=== PATIENT | male | born 1945 | race Caucasian/White ===

== ENCOUNTER 2016-07-02 19:30 | Emergency (ER) | payer MEDICARE, MEDICAID ==
[~2016-07-02] VITALS: Ht 170.2 cm; Wt 83.9 kg
[2016-07-02] MEDS ORDERED: IMITREX50 MG ORAL (19:44)
[2016-07-02] MEDS ORDERED: OMEPRAZOLE20 M2 ORAL (19:44)
[2016-07-02] MEDS ORDERED: METOPROLOL TAR100 M1 ORAL (19:44)
[2016-07-02] MEDS ORDERED: CYMBALTA60 MG ORAL (19:44)
[2016-07-02] MEDS ORDERED: DIOVAN160 MG ORAL (19:44)
[2016-07-02 19:45] VITALS: BP 122/65
[2016-07-02] MEDS ORDERED: Morphine Sulfate 4mg/ml Inj IVP ONE (20:15)
[2016-07-02 20:39] LABS: BASOPHILS % (AUTO) 0.4 % (0.0-2.0); EOSINOPHILS % (AUTO) 0.8 % (0.0-3.0); LYMPHOCYTES % (AUTO) 11.8 % (20.0-45.0); MEAN CORPUSCULAR HEMOGLOBIN 33.9 PG (27.0-31.0); MEAN CORPUSCULAR HGB CONC 37.1 G/DL (32.0-36.0); MEAN CORPUSCULAR VOLUME 92 FL (80-99); MEAN PLATELET VOLUME 8.3 FL (6.5-10.1); MONOCYTES % (AUTO) 4.6 % (1.0-10.0); NEUTROPHILS % (AUTO) 82.4 % (45.0-75.0); PLATELET COUNT 162 K/UL (150-450); RED BLOOD COUNT 4.38 M/UL (4.70-6.10)
[2016-07-02 20:46] LABS: APPEARANCE,URINE SLIGHTLY CLOUDY; KETONES,URINE NEGATIVE (NEGATIVE); LEUKOCYTE ESTERASE ,URINE NEGATIVE (NEGATIVE); NITRITE,URINE NEGATIVE (NEGATIVE); PH,URINE 8 (4.5-8.0); PROTEIN,URINE NEGATIVE (NEGATIVE); UROBILINOGEN,URINE NORMAL MG/DL (0.0-1.0)
[2016-07-02 20:48] LABS: TROPONIN I < 0.30 ng/mL (<=0.30)
[2016-07-02 20:51] LABS: ALANINE AMINOTRANSFERASE 39 U/L (3-41); ALBUMIN/GLOBULIN RATIO 1.7 (1.0-2.7); ANION GAP 18 (5-15); ASPARTATE AMINO TRANSFERASE 28 U/L (5-40); CALCIUM 9.7 mg/dL (8.6-10.2); CARBON DIOXIDE 24 mEQ/L (20-30); CHLORIDE 93 mEQ/L (98-107); CREATININE 0.8 mg/dL (0.7-1.2); GLOMERULAR FILTRATION RATE > 60 mL/min (>60); HEMOLYSIS 8; LIPASE 15 U/L (< 60); POTASSIUM 4.1 mEQ/L (3.4-4.9); SODIUM 135 mEQ/L (135-145); TOTAL PROTEIN 7.2 g/dL (6.6-8.7)
--- NOTE | 2016-07-02 21:34 | Emergency Room Report ---
History of Present Illness General Chief Complaint: Abdominal Pain Source: Patient, EMS Present Illness HPI This patient states that around 2 PM this afternoon he suddenly developed recurrent nausea, vomiting and mid abdominal pain. The patient states that 2 years ago he had an episode of pancreatitis. He thinks that it may be this. He has a history of cholecystectomy and appendectomy. He denies diarrhea. Denies dysuria or hematuria. He has no other complaints. Allergies: Coded Allergies: No Known Allergies (Unverified , 07/02/16) Patient History Past Medical History: see triage record, HTN, migraines, other - Hx of pancreatitis Social History: Reports: alcohol use, Denies: drug use, smoking Reviewed Nursing Documentation: PMH: Agreed, PSxH: Agreed Nursing Documentation-PMH Hx Hypertension: Yes Hx Gastrointestinal Problems: Yes - PANCREATITIS Hx Neurological Problems: Yes - MIGRAINE Review of Systems All Other Systems: negative except mentioned in HPI Physical Exam Vital Signs Date Time Temp Pulse Resp B/P Pulse Ox O2 Delivery O2 Flow Rate FiO2 07/02/16 19:38 98.1 60 18 131/77 99 Room Air Sp02 EP Interpretation: reviewed, normal General Appearance: no apparent distress, alert, GCS 15, non-toxic Head: normocephalic, atraumatic Eyes: bilateral eye PERRL, bilateral eye normal inspection ENT: hearing grossly normal, normal pharynx, no angioedema, normal voice Neck: full range of motion, supple/symm/no masses Respiratory: chest non-tender, lungs clear, normal breath sounds, speaking full sentences Cardiovascular #1: regular rate, rhythm, no edema Gastrointestinal: normal bowel sounds, soft, non-distended, no guarding, no rebound, tenderness - TTP Mid abdomen and lower abdomen. Rectal: deferred Musculoskeletal: back normal, gait/station normal, normal range of motion, non- tender Neurologic: alert, oriented x3, responsive, motor strength/tone normal, sensory intact, speech normal Psychiatric: judgement/insight normal, memory normal, mood/affect normal, no suicidal/homicidal ideation Skin: normal color, no rash, warm/dry, well hydrated Medical Decision Making Diagnostic Impression: Primary Impression: Abdominal pain Additional Impression: Nausea & vomiting ER Course This patient presents with abdominal pain and vomiting. On initial evaluation I am very concerned for a bowel obstruction, so I obtained a CT abdomen and pelvis which showed no acute findings. There was some chronic fatty change in the colon. I did educate the patient and his family of this. He will followup with his primary care physician. This is possibly a gastroenteritis. Laboratory workup showed no evidence of pancreatitis with normal lipase, and further, if the patient is nontender to palpation in the region of the pancreas. The patient has had a cholecystectomy and appendectomy. Overall, this patient's evaluation is reassuring. The patient responded well to IV Zofran. He did get morphine initially, and had resolution of his abdominal pain. However this would have been worn off by the time of discharge and his abdomen was benign. Toward the end of this patient's ED course the son of the patient requested narcotic pain medications for at home. Given this patient's age, I am very uncomfortable with this request. I will go ahead and give Tylenol No. 3 but given this patient is 71 years old I will not give her anything stronger. Also, I do not have an etiology for this patient's pain other than a gastroenteritis and narcotics are unnecessary in gastroenteritis. This is a very odd request persistent than would be expected given the comfort of the patient. I did give the patient a prescription for Zofran. Patient is given return precautions and followup instructions. Labs Test 07/02/16 20:15 White Blood Count 10.0 K/UL (4.8-10.8) Red Blood Count 4.38 M/UL (4.70-6.10) Hemoglobin 14.8 G/DL (14.2-18.0) Hematocrit 40.1 % (42.0-52.0) Mean Corpuscular Volume 92 FL (80-99) Mean Corpuscular Hemoglobin 33.9 PG (27.0-31.0) Mean Corpuscular Hemoglobin Concent 37.1 G/DL (32.0-36.0) Red Cell Distribution Width 11.0 % (11.6-14.8) Platelet Count 162 K/UL (150-450) Mean Platelet Volume 8.3 FL (6.5-10.1) Neutrophils (%) (Auto) 82.4 % (45.0-75.0) Lymphocytes (%) (Auto) 11.8 % (20.0-45.0) Monocytes (%) (Auto) 4.6 % (1.0-10.0) Eosinophils (%) (Auto) 0.8 % (0.0-3.0) Basophils (%) (Auto) 0.4 % (0.0-2.0) Prothrombin Time 10.0 SEC (9.30-11.50) Prothromb Time International Ratio 1.0 (0.9-1.1) Activated Partial Thromboplast Time 27 SEC (23-33) Urine Color Yellow Urine Appearance Slightly cloudy Urine pH 8 (4.5-8.0) Urine Specific [place] 1.010 (1.005-1.035) Urine Protein Negative (NEGATIVE) Urine Glucose (UA) Negative (NEGATIVE) Urine Ketones Negative (NEGATIVE) Urine Occult Blood Negative (NEGATIVE) Urine Nitrite Negative (NEGATIVE) Urine Bilirubin Negative (NEGATIVE) Urine Urobilinogen Normal MG/DL (0.0-1.0) Urine Leukocyte Esterase Negative (NEGATIVE) Sodium Level 135 mEQ/L (135-145) Potassium Level 4.1 mEQ/L (3.4-4.9) Chloride Level 93 mEQ/L (98-107) Carbon Dioxide Level 24 mEQ/L (20-30) Anion Gap 18 (5-15) Blood Urea Nitrogen 18 mg/dL (7-23) Creatinine 0.8 mg/dL (0.7-1.2) Estimat Glomerular Filtration Rate > 60 mL/min (>60) Glucose Level 138 mg/dL (74-106) Calcium Level 9.7 mg/dL (8.6-10.2) Total Bilirubin 0.5 mg/dL (0.0-1.2) Aspartate Amino Transf (AST/SGOT) 28 U/L (5-40) Alanine Aminotransferase (ALT/SGPT) 39 U/L (3-41) Alkaline Phosphatase 87 U/L (40-129) Troponin I < 0.30 ng/mL (<=0.30) Total Protein 7.2 g/dL (6.6-8.7) Albumin 4.6 g/dL (3.5-5.2) Globulin 2.6 g/dL Albumin/Globulin Ratio 1.7 (1.0-2.7) Lipase 15 U/L (< 60) EKG Diagnostic Results Rate: normal Rhythm: NSR ST Segments: no acute changes Rhythm Strip Diag. Results EP Interpretation: yes Rate: 60's Rhythm: NSR, no PVC's, no ectopy CT/MRI/US Diagnostic Results CT/MRI/US Diagnostic Results : Imaging Test Ordered: CT abd/pelvis Impression The terminal in the in she sat within the bowel wall which is a sign of chronic inflammation. There is a possibility of Crohn's. No active inflammation. No abscess, free air or small bowel instruction. See official report. Last Vital Signs Date Time Temp Pulse Resp B/P Pulse Ox O2 Delivery O2 Flow Rate FiO2 07/02/16 19:45 98.2 63 15 122/65 100 Room Air Status: improved Disposition: HOME, SELF-CARE Condition: Improved Referrals: NON PHYSICIAN (PCP) Patient Instructions: Viral Gastroenteritis, Adult AMANDA DIAZ D.O. July 02, 2016 21:34
[2016-07-02 22:00] VITALS: BP 119/68
[2016-07-02] MEDS ORDERED: ZOFRAN ODT4 MG ORAL (22:23)
[2016-07-02] MEDS ORDERED: ACETAMINOPHEN-1 EAC1 ORAL (22:23)
[2016-07-02 22:35] VITALS: BP 134/69
--- NOTE | 2016-07-04 20:03 | Cardiology Report ---
APPROVED REPORT EKG Measurement Heart [id number] Normal sinus rhythm Normal ECG
== END 2016-07-02 22:35 | disposition home or self-care (01) ==
LOC: EDBD 19:30 → EMR 19:55
DX: R10.9 Unspecified abdominal pain (principal); R11.2 Nausea with vomiting, unspecified; Z90.49 Acquired absence of other specified parts of digestive tract; Z90.89 Acquired absence of other organs; I10 Essential (primary) hypertension
CPT/HCPCS: 36415; 74177; 80053; 81003; 83690; 84484; 85025; 85610; 85730; 93005; 96360; 96361; 96374; 96375; 99284; J2270; J2405; Q9967

== ENCOUNTER 2017-09-07 06:39 | Emergency (ER) | payer MEDICARE, MEDICAID ==
[~2017-09-07] VITALS: Ht 170.2 cm; Wt 84.8 kg
[~2017-09-07 06:39] MED LIST: ACETAMINOPHEN-1 EAC1 ORAL; CYMBALTA60 MG ORAL; DIOVAN160 MG ORAL; IMITREX50 MG ORAL; METOPROLOL TAR100 M1 ORAL; OMEPRAZOLE20 M2 ORAL; ZOFRAN ODT4 MG ORAL
[2017-09-07 07:29] VITALS: BP 139/84
--- NOTE | 2017-09-07 07:50 | Emergency Room Report ---
History of Present Illness General Chief Complaint: Sore Throat Source: Patient Present Illness HPI Pt. is here b/c he has "sore throat" about six days. Finished Zithromax. Still he has a lot of clearing of throat, burning. No fever, no real cough, no chest pain. He already takes Omeprazole 40 daily. No trauma, no fever, no shortness of breath, no travel history, no leg swelling, no diaphoresis, no exertional complaints, no nausea, no vomiting, no diarrhea, no abdominal pain. Tolerating po fine, normal urinary output, normal bm. No syncope, LOC, dizziness, lightheadedness, headache. No recent surgery. Allergies: Coded Allergies: No Known Allergies (Unverified , 07/02/16) Patient History Past Medical History: see triage record, old chart reviewed, GERD Past Surgical History: veronica jordan Nursing Documentation-PMH Hx Hypertension: Yes Hx Gastrointestinal Problems: Yes - PANCREATITIS Hx Neurological Problems: Yes - MIGRAINE Physical Exam Vital Signs Date Time Temp Pulse Resp B/P (MAP) Pulse Ox O2 Delivery O2 Flow Rate FiO2 09/07/17 06:42 97.9 90 16 139/84 97 Room Air 97.9 Sp02 EP Interpretation: reviewed, normal General Appearance: normal inspection, well appearing, no apparent distress, alert, GCS 15, non-toxic Head: normocephalic, atraumatic Eyes: bilateral eye normal inspection, bilateral eye PERRL, bilateral eye EOMI ENT: normal ENT inspection, hearing grossly normal, normal pharynx, no angioedema, normal voice, moist mucus membranes Neck: normal inspection, full range of motion, supple, no meningismus, no bony tend Respiratory: normal inspection, lungs clear, normal breath sounds, no rhonchi, no respiratory distress, no retraction, no accessory muscle use, no wheezing Cardiovascular #1: normal inspection, regular rate, rhythm, no edema Gastrointestinal: normal inspection, normal bowel sounds, non tender, soft, no mass, non-distended Musculoskeletal: gait/station normal, normal range of motion Neurologic: normal inspection, alert, oriented x3, responsive, motor strength/ tone normal Psychiatric: normal inspection, judgement/insight normal, memory normal Suicide Risk Assessment: Suicidal Ideation: No Had intent to initiate attempt: No Pt's plan for suicide attempt: No Has means to complete attempt: No Skin: normal inspection, normal color, no rash, warm/dry Medical Decision Making Diagnostic Impression: Primary Impression: Esophagitis ER Course recommend try first increasing his omeprazole to max 60 daily could also try Zyrtec Last Vital Signs Date Time Temp Pulse Resp B/P (MAP) Pulse Ox O2 Delivery O2 Flow Rate FiO2 09/07/17 07:29 97.9 84 16 139/84 97 Room Air 97.9 Disposition: HOME, SELF-CARE Condition: Stable Patient Instructions: Sore Throat Sterling Stinson M.D. Sep 07, 2017 07:50
[2017-09-07] MEDS ORDERED: ZYRTEC10 M3 ORAL (07:51)
[2017-09-07 07:58] VITALS: BP 139/84
== END 2017-09-07 07:59 | disposition home or self-care (01) ==
LOC: EMR 07:47
DX: K20.9 Esophagitis, unspecified (principal); K21.9 Gastro-esophageal reflux disease without esophagitis; I10 Essential (primary) hypertension; Z90.89 Acquired absence of other organs; Z90.49 Acquired absence of other specified parts of digestive tract
CPT/HCPCS: 99282